=== PATIENT | female | born 1995 | race Caucasian/White ===

== ENCOUNTER 2019-09-05 21:36 | Emergency (ER) | payer OTHER ==
[~2019-09-05] VITALS: Ht 162.6 cm; Wt 54.0 kg
[2019-09-05 22:08] VITALS: BP 122/77
[2019-09-05] MEDS ORDERED: predniSONE 20 MG TABLET PO ONE (23:45)
[2019-09-05] MEDS ORDERED: METH4TAB2 PO (23:59)
[2019-09-05] MEDS ORDERED: CLIN150C14 PO (23:59)
--- NOTE | 2019-09-05 23:59 | PHYS DOC ---
Past Medical History Past Medical History: Asthma Additional Past Medical Histor: TACHYCARDIA Past Surgical History: Other Additional Past Surgical Histo: WISDOM TEETH Smoking Status: Never Smoker Alcohol Use: Occasionally General Adult EDM: Chief Complaint: SKIN RASH/ABSCESS HPI: HPI: Patient is a 24 year old female who presents for evaluation of an itching rash to both arms and legs. Patient was likely exposed to poison oak. She is concerned that she may be developing infection to the back of her left leg on the side that she had been scratching. There is no reported fevers and chills or other signs and symptoms Review of Systems: Review of Systems: Constitutional: Denies fever or chills. [] Eyes: Denies change in visual acuity. [] HENT: Denies nasal congestion or sore throat. [] Respiratory: Denies cough or shortness of breath. [] Cardiovascular: Denies chest pain or edema. [] GI: Denies abdominal pain, nausea, vomiting, bloody stools or diarrhea. [] : Denies dysuria. [] Musculoskeletal: Denies back pain or joint pain. [] Integument: Diffuse itching rash particularly on exposed areas of arms and legs. [] Neurologic: Denies headache, focal weakness or sensory changes. [] Endocrine: Denies polyuria or polydipsia. [] Lymphatic: Denies swollen glands. [] Psychiatric: Denies depression or anxiety. [] Heart Score: Risk Factors: Risk Factors: DM, Current or recent (<one month) smoker, HTN, HLP, family history of CAD, obesity. Risk Scores: Score 0 - 3: 2.5% MACE over next 6 weeks - Discharge Home Score 4 - 6: 20.3% MACE over next 6 weeks - Admit for Clinical Observation Score 7 - 10: 72.7% MACE over next 6 weeks - Early Invasive Strategies Current Medications: Current Medications Medications (Trade) Dose Ordered Sig/[place] Start Time Stop Time Status Last Admin Dose Admin Prednisone (Prednisone) 60 mg 1X ONCE 09/05/19 23:45 09/05/19 23:46 DC 09/05/19 23:43 60 MG Allergies: Allergies: Allergies Coded Allergies Type Severity Reaction Last Updated Verified No Known Drug Allergies 09/05/19 No Physical Exam: PE: Constitutional: Well developed, well nourished, mild acute distress, non-toxic appearance. [] HENT: Normocephalic, atraumatic, bilateral external ears normal, oropharynx moist, no oral exudates, nose normal. [] Eyes: PERRL, EOMI, conjunctiva normal, no discharge. [] Neck: Normal range of motion, no tenderness, supple, no stridor. [] Cardiovascular:Heart rate regular rhythm, murmur [] Lungs & Thorax: Bilateral breath sounds clear to auscultation [] Abdomen: Bowel sounds normal, soft, no tenderness. [] Skin: Warm, dry, no erythema, diffuse pruritic rash to both arms and legs in the exposed areas, area of cellulitis developing to back of left leg. [] Back: No tenderness. [] Extremities: No tenderness, no cyanosis, ROM intact, no edema. [] Neurologic: Alert and oriented, normal motor function, normal sensory function, no focal deficits noted. [] Psychologic: Affect normal, judgement normal, mood normal. [] Current Patient Data: Vital Signs: Vital Signs Date Time Temp Pulse Resp B/P (MAP) Pulse Ox O2 Delivery O2 Flow Rate FiO2 09/05/19 22:08 98.5 82 16 122/77 (92) 98 Room Air 98.5 EKG: EKG: [] Radiology/Procedures: Radiology/Procedures: [] Course & Med Decision Making: Course & Med Decision Making Pertinent Labs and Imaging studies reviewed. (See chart for details) [] Dragon Disclaimer: Dragon Disclaimer: This electronic medical record was generated, in whole or in part, using a voice recognition dictation system. 2350 stable, patient will be treated for allergic reaction to poison oak as well some early cellulitis developing on her left thigh. Given dose of prednisone here in the emergency department. Prescription for Medrol Dosepak and clindamycin given Departure Departure Impression: Primary Impression: Poison oak dermatitis Additional Impression: Cellulitis Qualified Codes: L03.116 - Cellulitis of left lower limb Disposition: HOME, SELF-CARE Condition: STABLE Referrals: DAVID MCDANIEL MD (PCP) Patient Instructions: Cellulitis, Poison [place] Additional Instructions: Apply triple antibiotic to the open wounds, use Benadryl 1 to 2 pills by mouth every 6 hours as needed for itching. Keep areas clean and dry. Take antibiotics as directed Scripts Methylprednisolone (MEDROL) 4 Mg Tab.ds.pk 1 PKG PO UD for inflammation, #1 PKG Prov: HILARIO ZAPATA DO 09/05/19 Clindamycin Hcl (CLINDAMYCIN HCL) 150 Mg Capsule 1 CAP PO QID, #28 CAP Prov: HILARIO ZAPATA DO 09/05/19 Justicifation of Admission Dx: Justifications for Admission: Justification of Admission Dx: N/A HILARIO ZAPATA DO Sep 05, 2019 23:59
== END 2019-09-06 00:09 | disposition home or self-care (01) ==
LOC: ER 21:36
DX: L23.7 Allergic contact dermatitis due to plants, except food (principal); L03.116 Cellulitis of left lower limb; J45.909 Unspecified asthma, uncomplicated
CPT/HCPCS: 99283; J7512